=== PATIENT | female | born 1990 | race African-American/Black ===

== ENCOUNTER 2016-12-27 17:38 | Emergency (ER) | payer SELFPAY ==
[~2016-12-27] VITALS: Ht 157.5 cm; Wt 50.0 kg
[2016-12-27 17:42] VITALS: Ht 157.5 cm; Wt 50.0 kg
[2016-12-27 18:50] LABS: ADD UMIC YES; URINE BILIRUBIN (Dip) NEGATIVE (NEGATIVE); URINE BLOOD (Dip) 2+ (NEGATIVE); URINE COLOR LT. YELLOW (YELLOW); URINE GLUCOSE (Dip) NEGATIVE (NEGATIVE); URINE KETONES (Dip) 15 (NEGATIVE); URINE LEUKOCYTE ESTERASE (Dip) NEGATIVE (NEGATIVE); URINE NITRITE (Dip) NEGATIVE (NEGATIVE); URINE TOTAL PROTEIN (Dip) NEGATIVE (NEGATIVE); URINE UROBILINOGEN (Dip) 0.2 E.U./dL (0.1-1.0)
[2016-12-27 18:53] LABS: ADD SCAN DIFF NO
[2016-12-27 18:55] LABS: BASOPHILS % 0.5 % (0.0-2.0); EOSINOPHILS # 0.1 10^3/ul (0.0-0.5); EOSINOPHILS % 0.9 % (0.0-7.0); HEMOGLOBIN 14.6 g/dl (12.0-16.0); LYMPHOCYTES # 1.4 10^3/ul (0.8-2.9); LYMPHOCYTES % 15.7 % (15.0-51.0); MEAN CORPUSCULAR VOLUME 97.1 fl (82.0-101.0); MONOCYTE # 0.4 10^3/ul (0.3-0.9); MONOCYTES % 4.9 % (0.0-11.0); NEUTROPHIL # 6.8 10^3/ul (1.6-7.5); NEUTROPHILS % 77.5 % (39.0-77.0); PLATELET COUNT 270 10^3/UL (140-415); RED BLOOD COUNT 4.43 10^6/ul (4.20-5.40); RED CELL DISTRIBUTION WIDTH 15.3 % (11.5-14.5); WHITE BLOOD COUNT 8.7 10^3/ul (4.8-10.8)
[2016-12-27 19:04] LABS: ALBUMIN 4.8 g/dl (3.3-4.9); POTASSIUM 3.5 mmol/L (3.5-5.1)
[2016-12-27 19:06] LABS: BILIRUBIN,INDIRECT 0.2 mg/dl (0-1.1); BILIRUBIN,TOTAL 0.2 mg/dl (0.2-1.3); CREATININE 0.74 mg/dl (0.44-1.00)
[2016-12-27 19:07] LABS: ALBUMIN/GLOBULIN RATIO 1.23; TOTAL PROTEIN 8.7 g/dl (6.1-8.1)
--- NOTE | 2016-12-27 19:07 | RADRPT ---
PROCEDURE: US Abdomen. CLINICAL INDICATION: Abdominal pain. TECHNIQUE: Multiple real-time images were acquired of the patient's right upper quadrant utilizing a high resolution transducer. The images were reviewed on a high-resolution PACS workstation. COMPARISON: None FINDINGS: The liver demonstrates normal echogenicity and size and no focal lesions are seen. The liver measure s 15.5 cm in size. No gallstones are identified within the gallbladder. There is no pericholecystic fluid. The gallbladder wall measures 1.1 mm in size. No intrahepatic biliary dilatation is seen. The common bile duct measures 3.8 mm in maximal dimension. The visualized portions of the pancreas are unremarkable. No free fluid is identified. The right kidney is of normal size, and demonstrate normal echogenicity and morphology. The right k idney measures 9.8 cm. There are is no dilatation of the right collecting system. A 2 mm echogenic structure is seen in the right kidney. There are no perinephric fluid collections. There are no ot her areas of increased echogenicity to suggest nephrolithiasis. IMPRESSION: 1. 2 mm echogenic structure in the right kidney which may represent a nonobstructing renal stone. 2. Otherwise, unremarkable right upper quadrant ultrasound. RPTAT: HPNM Physician Spencer Date Time Electronically viewed and signed by Physician Spencer on 12/27/2016 19:06 /
[2016-12-27 19:10] LABS: BACTERIA,URINE MODERATE; MUCUS,URINE MODERATE
[2016-12-27] MEDS ORDERED: HYDROCODONE/APAP (5/325) TAB PO ONE (19:30)
[2016-12-27] MEDS ORDERED: HYDR-902 PO (19:33)
[2016-12-27] MEDS ORDERED: ONDA4TAB14 PO (19:33)
--- NOTE | 2016-12-27 19:38 | ERD ---
ER Documentation Chief Complaint Date/Time DATE: 12/27/16 TIME: 19:36 Chief Complaint RUQ PAIN TODAY HPI Patient is a 26-year-old female who presents with 1 day of right upper quadrant pain that radiates down as well as to her back. Pain is currently 6 out of 10. She denies fever. She denies any nausea or vomiting or diarrhea. She denies any change with food. Last menstrual period was on December 17. She denies any dysuria hematuria or frequency. She has not taken any medication for pain. She has no history of gallstones. She states that she does drink heavily daily and states she drinks about 3 shots of hard liquor every day. ROS All systems reviewed and are negative except as per history of present illness. Medications Home Meds Active Scripts Ondansetron (Ondansetron Odt) 4 Mg Tab.rapdis, 4 MG PO Q6H Y for NAUSEA AND/OR VOMITING, #20 TAB Prov:JP SHANKS PA-C 12/27/16 Hydrocodone/Acetaminophen ([place] 10-325 Tablet) 1 Each Tablet, 1 TAB PO Q6H Y for PAIN, #25 TAB Prov:JP SHANKS PA-C 12/27/16 PMhx/Soc Medical and Surgical Hx: pt denies Medical Hx, pt denies Surgical Hx Hx Alcohol Use: Yes Hx Substance Use: No Hx Tobacco Use: No Smoking Status: Never smoker FmHx Family History: No diabetes Physical Exam Vitals Vital Signs Date Time Temp Pulse Resp B/P Pulse Ox O2 Delivery O2 Flow Rate FiO2 12/27/16 17:42 98.1 84 18 117/77 99 Physical Exam General: well developed, well nourished, alert, nontoxic, no distress Head: normocephalic, atraumatic Eyes: PERRL, normal conjunctiva Neck: Supple, nontender, no lymphadenopathy, no midline tenderness Respiratory: Clear to auscaultation bilaterally, speaks in full sentences, no use of accesory muscles or labored breathing, no rales, ronchi, or wheezing Cardiovascular: RRR, No murmurs GI: soft, mild epigastric tenderness, non distended, negative murphys sign, negative mcburneys point tenderness, no cva tenderness bilaterally, no rebound or guarding Back: no midline tenderness, no step offs or bony abnormalities, sensation to light touch in tact Result Diagram: 12/27/16183412/27/161834 Results 24 hrs Laboratory Tests Test 12/27/16 18:35 White Blood Count 8.710^3/ul Red Blood Count 4.4310^6/ul Hemoglobin 14.6g/dl Hematocrit 43.0% Mean Corpuscular Volume 97.1fl Mean Corpuscular Hemoglobin 33.0pg Mean Corpuscular Hemoglobin Concent 34.0g/dl Red Cell Distribution Width 15.3% Platelet Count 91077^3/UL Mean Platelet Volume 10.0fl Neutrophils % 77.5% Lymphocytes % 15.7% Monocytes % 4.9% Eosinophils % 0.9% Basophils % 0.5% Nucleated Red Blood Cells % 0.0/100WBC Neutrophils # 6.810^3/ul Lymphocytes # 1.410^3/ul Monocytes # 0.410^3/ul Eosinophils # 0.110^3/ul Basophils # 0.010^3/ul Nucleated Red Blood Cells # 0.010^3/ul Urine Color LT. YELLOW Urine Clarity SLIGHTLY CLOUDY Urine pH 6.0 Urine Specific [place] 1.025 Urine Ketones 15 Urine Nitrite NEGATIVE Urine Bilirubin NEGATIVE Urine Urobilinogen 0.2 E.U./dL Urine Leukocyte Esterase NEGATIVE Urine Microscopic RBC 10-25/HPF Urine Microscopic WBC 0-2/HPF Urine Epithelial Cells MODERATE Urine Bacteria MODERATE Urine Mucus MODERATE Urine Hemoglobin 2+ Urine Glucose NEGATIVE% Urine Total Protein NEGATIVE Sodium Level 144mmol/L Potassium Level 3.5mmol/L Chloride Level 104mmol/L Carbon Dioxide Level 25mmol/L Anion Gap 19 Blood Urea Nitrogen 9mg/dl Creatinine 0.74mg/dl Glucose Level 87mg/dl Calcium Level 10.0mg/dl Total Bilirubin 0.2mg/dl Direct Bilirubin 0.00mg/dl Indirect Bilirubin 0.2mg/dl Aspartate Amino Transf (AST/SGOT) 36IU/L Alanine Aminotransferase (ALT/SGPT) 50IU/L Alkaline Phosphatase 65IU/L Total Protein 8.7g/dl Albumin 4.8g/dl Globulin 3.90g/dl Albumin/Globulin Ratio 1.23 Lipase 1583U/L Serum HCG, Qualitative NEGATIVE Current Medications Medications (Trade) Dose Ordered Sig/Anthony Route PRN Reason Start Time Stop Time Status Last Admin Dose Admin Acetaminophen/ Hydrocodone Bitart ([place] (5/325)) 1 tab ONCE ONCE PO 12/27/16 19:30 12/27/16 19:31 DC Procedures/MDM 26-year-old female presents with epigastric pain that began today. Vital signs are all normal. She has no nausea or vomiting and is tolerating oral intake. She is well-appearing in no distress in examination room. She has no elevated white blood cell count labs however that she does have elevated lipase. I explained to the patient this is most likely related to her alcohol use. No evidence of gallstones on ultrasound. I offered her admission to the hospital for rehydration and pain management however she declined and would like to be discharged home and she was discharged with Santi and Marta for pain. She knows to return for any increased pain or inability to control her pain at home or nausea or vomiting. I reviewed the case with Dr. Ahn and he agrees with the plan. Recommended this patient follow up with her primary care doctor within 48 hours or return to the emergency room for any worsening of symptoms. However this time I do believe there is suitable for outpatient management. I answered all their questions and they agreed with the plan and were discharged home. Departure Diagnosis: Primary Impression: Acute pancreatitis Condition: Stable Patient Instructions: Acute Pancreatitis Additional Instructions: Call your primary care doctor TOMORROW for an appointment during the next 1-2 days.See the doctor sooner or return here if your condition worsens before your appointment time.Return to this facility if you are not improving as expected. JP SHANKS PA-C Dec 27, 2016 19:38
== END 2016-12-27 19:45 | disposition home or self-care (01) ==
LOC: FTE 17:38
DX: K85.90 Acute pancreatitis without necrosis or infection, unspecified (principal)
CPT/HCPCS: 76705; 80053; 81001; 81003; 83690; 84703; 85025